=== PATIENT | male | born 1960 | race Caucasian/White ===

== ENCOUNTER → 2017-01-15 | Outpatient (CLI) | payer OTHER ==
[2017-01-15 11:16] LABS: BASO # 0.1 x10^3/uL (0.0-0.2); BASO % 1 % (0-3); EOS % 2 % (0-3); HEMATOCRIT 36.3 % (39.0-53.0); HEMOGLOBIN 11.7 g/dL (13.0-17.5); LYMPH # 1.7 x10^3/uL (1.0-4.8); LYMPH % 16 % (24-48); MEAN CORPUSCULAR HEMOGLOBIN 27 pg (25-35); MEAN CORPUSCULAR HGB CONC 32 g/dL (31-37); MEAN CORPUSCULAR VOLUME 85 fL (79-100); MONO % 7 % (0-9); NEUT % 73 % (31-73); PLATELET COUNT 385 x10^3/uL (140-400); RED BLOOD COUNT 4.29 x10^6/uL (4.30-5.70); WHITE BLOOD COUNT 10.3 x10^3/uL (4.0-11.0)
--- NOTE | 2017-01-15 12:59 | RAD ---
MR of the right hip region HISTORY: Open ulcer last week. Pressure ulcer. TECHNIQUE: Routine multiplanar sequences are obtained. FINDINGS: Broad soft tissue defect posterolateral to the right hip compatible with patient's ulcer. Ulcer channel is surrounded by abnormal soft tissue which extends to the femur, probably contacting the greater trochanter and proximal shaft. Small pockets of air are identified within the abnormal soft tissue, presumably due to room exposure. There is some heterogeneous fluid/edema deep to the ulcer and surrounding the bone in the right hip area but no evidence of a drainable abscess. Marrow edema signal identified in the proximal femur, centered at the greater trochanter. There is cortical destruction at the greater trochanter with loss of underlying fatty marrow signal, compatible with osteomyelitis. Diffuse intramuscular edema involving the proximal vastus muscles, gluteus muscles and obturator externus muscle. On the coronal T2-weighted images, series 8, there is some fluid signal extending proximally, lateral to the iliac bone, series 8, image 13 through 15, could represent dissection of fluid or abscess in the upper pelvis. Trace fluid in the right hip joint of uncertain sterility. The gluteus minimus and medius tendon insertions are difficult to define, could be due to the extensive inflammatory soft tissue changes or injury. IMPRESSION: 1. There is a deep soft tissue ulcer extending to the greater trochanter of the femur with evidence of osteomyelitis at the greater trochanter. 2. Extensive inflammatory or phlegmonous soft tissue around the ulcer and right hip without drainable abscess. However, there does appear to be some barely visualized fluid signal dissecting superiorly, into the right hemipelvis lateral to the iliac bone, and an abscess here is difficult to exclude. If further workup is considered, MRI of the musculoskeletal pelvis could be of benefit. Electronically signed by: Ventura Rodriguez MD (01/15/2017 12:56 PM) [id number]
== END | disposition home or self-care (01) ==
LOC: MRI 10:45
PROVIDERS: ATTEND Nurse Practitioner Family
DX: L89.213 Pressure ulcer of right hip, stage 3 (principal); M86.8X8 Other osteomyelitis, other site
CPT/HCPCS: 36415; 73721; 85025; 87071; 87075; 87205

== ENCOUNTER 2017-01-20 14:05 | Inpatient (IN) | payer OTHER ==
[~2017-01-20] VITALS: Ht 177.8 cm; Wt 108.9 kg
[2017-01-21 11:30] VITALS: BP 137/89
[2017-01-21] MEDS ORDERED: OXYB5TAB7 PO (12:34)
[2017-01-21] MEDS ORDERED: DIAZ5TAB PO (12:36)
[2017-01-21] MEDS ORDERED: INSU100V8 SQ (12:38)
[2017-01-21] MEDS ORDERED: LEVO500T59 PO (12:38)
[2017-01-21] MEDS ORDERED: INSU100C4 SQ (12:39)
[2017-01-21] MEDS ORDERED: DEXTROSE 50% 25 GM / 50ML DISP.SYRIN. IV PRN (13:30)
[2017-01-21] MEDS: OXYBUTYNIN CHLORIDE 5 MG TABLET PO SCH ×2 (13:49→21:03)
[2017-01-21] MEDS ORDERED: VANCOMYCIN 2 GM in IV DEXTROSE 5% 500 ML IV ONE (14:00)
[2017-01-21 15:00] VITALS: BP 144/85
[2017-01-21 15:38] LABS: CALCIUM 7.9 mg/dL (8.5-10.1); CREATININE 0.6 mg/dL (0.7-1.3); GFR 138.9; POTASSIUM 4.2 mmol/L (3.5-5.1)
[2017-01-21] MEDS: VANCOMYCIN PER PHARMACY MC PRN (15:45)
[2017-01-21] MEDS: INSULIN ASPART 300 UNITS/3 ML INSULN.PEN SQ SCH (18:17)
[2017-01-21 19:47] VITALS: BP 99/63
--- NOTE | 2017-01-21 20:54 | PDOC ---
PROGRESS NOTES Subjective Subjective Problems overnight: Objective Vital Signs Vital Signs Date Time Temp Pulse Resp B/P (MAP) Pulse Ox O2 Delivery O2 Flow Rate FiO2 01/21/17 19:44 Room Air 01/21/17 15:00 99.3 89 20 144/85 (104) 96 99.3 Labs Laboratory Tests Test 01/21/17 15:10 01/21/17 17:07 Sodium Level 134 mmol/L (136-145) Potassium Level 4.2 mmol/L (3.5-5.1) Chloride Level 101 mmol/L (98-107) Carbon Dioxide Level 26 mmol/L (21-32) Anion Gap 7 (6-14) Blood Urea Nitrogen 18 mg/dL (8-26) Creatinine 0.6 mg/dL (0.7-1.3) Estimated GFR (Cockcroft-Gault) 138.9 Glucose Level 281 mg/dL (70-99) Calcium Level 7.9 mg/dL (8.5-10.1) Glucose (Fingerstick) 237 mg/dL (70-99) Laboratory Tests Test 01/21/17 15:10 01/21/17 17:07 Sodium Level 134 mmol/L (136-145) Potassium Level 4.2 mmol/L (3.5-5.1) Chloride Level 101 mmol/L (98-107) Carbon Dioxide Level 26 mmol/L (21-32) Anion Gap 7 (6-14) Blood Urea Nitrogen 18 mg/dL (8-26) Creatinine 0.6 mg/dL (0.7-1.3) Estimated GFR (Cockcroft-Gault) 138.9 Glucose Level 281 mg/dL (70-99) Calcium Level 7.9 mg/dL (8.5-10.1) Glucose (Fingerstick) 237 mg/dL (70-99) Assessment Assessment POD# [], S/P [] Problems: Plan Plan of Care I reviewed the patient's mri and culture results. It appears he has a MRSA and E. faecalis infection of his right gluteal region. He is quadriplegic (per the nursing report I received), and this is likely a pressure sore. He is also diabetic. This is a very complex patient, and although the MRI reveals that the ulceration extends down to his greater trochanter, this greater trochanter osteomyelitis is not the full extent of his problem. He will likely need many debridements and complex soft tissue reconstruction / coverage. This will require plastic surgery, which we do not have at [facility]. I would recommend that he be transferred to a higher level tertiary care facility as soon as possible. Thank you for allowing me to participate in the care of your patient. Please call my office [phone] with any questions. ARLENE GIRON MD Jan 21, 2017 20:54
[2017-01-21] MEDS ORDERED: INSULIN ASPART 300 UNITS/3 ML INSULN.PEN SQ ONE (21:00)
[2017-01-21] MEDS: LACTOBACILLUS RHAMNOSUS GG 1 CAPSULE. PO SCH (21:03)
[2017-01-21 23:49] VITALS: BP 176/106
[2017-01-22] MEDS: VANCOMYCIN 1.75 GM in IV DEXTROSE 5 %-0.45 % NACL 500 ML IV SCH ×2 (00:59→15:45)
[2017-01-22 03:35] VITALS: BP 164/77
[2017-01-22 07:00] VITALS: BP 155/98
[2017-01-22] MEDS: LACTOBACILLUS RHAMNOSUS GG 1 CAPSULE. PO SCH ×2 (08:38→22:03)
[2017-01-22] MEDS: OXYBUTYNIN CHLORIDE 5 MG TABLET PO SCH ×3 (08:38→22:03)
[2017-01-22] MEDS: INSULIN DETEMIR 300 UNITS/3 ML INSULN.PEN. SQ SCH (08:44)
[2017-01-22] MEDS: INSULIN ASPART 300 UNITS/3 ML INSULN.PEN SQ SCH ×3 (08:48→17:42)
--- NOTE | 2017-01-22 09:09 | PDOC ---
GENERAL General: see dictated H&P. briefly has outpatient MRI here showing osteomyelitis of greater trochanter area and outside wound cultures showing MRSA. ID and ortho consulted. On vancomycin currently with only significant PMH of paraplegia and DM. Problems: VITAL SIGNS Vital Signs: Vital Signs Date Time Temp Pulse Resp B/P (MAP) Pulse Ox O2 Delivery O2 Flow Rate FiO2 01/22/17 07:00 98.4 84 18 155/98 (117) 98 Room Air 98.4 I & O I & O Intake and Output 01/22/17 07:00 Intake Total 4245 ml Output Total 1175 ml Balance 3070 ml Intake Oral 1330 ml IV Total 1000 ml Other 1915 ml Output Urine Total 1175 ml # Bowel Movements 2 ALLERGIES Allergies: Allergies Coded Allergies Type Severity Reaction Last Updated Verified I S O L A T I O N *CONTACT* Allergy Unknown 01/20/17 Yes Iodinated Contrast- Oral and IV Dye Allergy Unknown 01/22/17 Yes codeine Allergy Unknown 01/22/17 Yes MEDS Medications: Current Medications Medications (Trade) Dose Ordered Sig/Tory Start Time Stop Time Status Last Admin Dose Admin Dextrose (Dextrose 50%-Water Syringe) 12.5 gm PRN Q15MIN PRN 01/21/17 13:30 Diazepam (Valium) 5 mg PRN Q6HRS PRN 01/21/17 13:30 Insulin Aspart (NovoLOG) 3 units 1X ONCE 01/21/17 21:00 01/21/17 21:01 DC 01/21/17 21:09 3 UNITS Insulin Detemir (Levemir) 28 units DAILY08 01/22/17 08:00 01/22/17 08:44 28 UNITS Lactobacillus Rhamnosus (Culturelle) 1 cap BID 01/21/17 21:00 01/22/17 08:38 1 CAP Levofloxacin (Levaquin) 500 mg PRN DAILY PRN 01/21/17 13:30 Oxybutynin Chloride (Ditropan) 5 mg TID 01/21/17 14:00 01/22/17 08:38 5 MG Vancomycin HCl 1 each 1X ONCE 01/23/17 00:30 01/23/17 00:31 Vancomycin HCl (Vanco Per Pharmacy) 1 each PRN DAILY PRN 01/21/17 13:15 01/21/17 15:45 1 EACH Vancomycin HCl 1.75 gm/Dextrose/ Sodium Chloride 500 ml @ 250 mls/hr Q12H 01/22/17 01:00 01/22/17 00:59 250 MLS/HR Vancomycin HCl 2 gm/Dextrose 500 ml @ 250 mls/hr 1X ONCE 01/21/17 14:00 01/21/17 15:59 DC 01/21/17 13:32 250 MLS/HR LAB Lab: Laboratory Tests Test 01/21/17 14:30 01/21/17 15:10 01/21/17 17:07 01/21/17 20:43 Nasal Screen MRSA (PCR) Positive (Negative) Sodium Level 134 mmol/L (136-145) Potassium Level 4.2 mmol/L (3.5-5.1) Chloride Level 101 mmol/L (98-107) Carbon Dioxide Level 26 mmol/L (21-32) Anion Gap 7 (6-14) Blood Urea Nitrogen 18 mg/dL (8-26) Creatinine 0.6 mg/dL (0.7-1.3) Estimated GFR (Cockcroft-Gault) 138.9 Glucose Level 281 mg/dL (70-99) Calcium Level 7.9 mg/dL (8.5-10.1) Glucose (Fingerstick) 237 mg/dL (70-99) 239 mg/dL (70-99) Test 01/21/17 22:56 01/22/17 08:11 Glucose (Fingerstick) 191 mg/dL (70-99) 200 mg/dL (70-99) UMA SOL MD Jan 22, 2017 09:09
--- NOTE | 2017-01-22 09:50 | PDOC ---
Infectious Disease Note Vital Sign Vital Signs Vital Signs Date Time Temp Pulse Resp B/P (MAP) Pulse Ox O2 Delivery O2 Flow Rate FiO2 01/22/17 07:00 98.4 84 18 155/98 (117) 98 Room Air 98.4 Labs Lab Laboratory Tests Test 01/21/17 14:30 01/21/17 15:10 01/21/17 17:07 01/21/17 20:43 Nasal Screen MRSA (PCR) Positive (Negative) Sodium Level 134 mmol/L (136-145) Potassium Level 4.2 mmol/L (3.5-5.1) Chloride Level 101 mmol/L (98-107) Carbon Dioxide Level 26 mmol/L (21-32) Anion Gap 7 (6-14) Blood Urea Nitrogen 18 mg/dL (8-26) Creatinine 0.6 mg/dL (0.7-1.3) Estimated GFR (Cockcroft-Gault) 138.9 Glucose Level 281 mg/dL (70-99) Calcium Level 7.9 mg/dL (8.5-10.1) Glucose (Fingerstick) 237 mg/dL (70-99) 239 mg/dL (70-99) Test 01/21/17 22:56 01/22/17 08:11 Glucose (Fingerstick) 191 mg/dL (70-99) 200 mg/dL (70-99) Objective Assessment Rt trochanter osteomyelitis with possible pelvic osteo MRSA Paraplegia DM Plan Plan of Care Pt need extensive resection and flap surgery ( plastics ) will need to go through [facility] antibiotics can be changed to po doxy until pre and post surgery with iv antibiotics. process explained to pt in very detail IRISH LORENZO MD Jan 22, 2017 09:50
[2017-01-22 11:00] VITALS: BP 156/106
--- NOTE | 2017-01-22 12:16 | PDOC2 ---
CONSULT Date of Consult Date of Consult DATE: 01/22/17 TIME: 12:09 Reason for Consult Reason for Consult: Right hip wound Referring Physician Referring Physician: Dr. Morris Identification/Chief Complaint Chief Complaint Right hip wound demonstrating worsening, increased depth and most recent evidence of osteomyelitis Problems: (1) Osteomyelitis of right hip (2) Stage III pressure ulcer of right hip Source Source: Chart review, Patient History of Present Illness Reason for Visit: This is a 56-year-old patient recently admitted for worsening right hip ulceration. Patient reports a prior history of hip ulceration that resolved with negative pressure wound therapy. He did not believe that required bone debridement. Patient has been undergoing treatment of right hip ulceration for some time. Recent MRI demonstrated concern for bone involvement. It is my understanding that negative pressure wound therapy was being utilized at this time as well. Recent cultures have demonstrated MRSA. Patient's comorbidities are significant for paraplegia and diabetes. Patient reports a relatively good protein intake. He does not report recent fever, chills or lassitude. He is not aware of worsening odor. Past Medical History CENTRAL NERVOUS SYSTEM: Other (paraplegia) Endocrine: Diabetes Social History Social History Not contributory Current Problem List Problem List Right hip osteomyelitis Current Medications Current Medications Current Medications Vancomycin HCl (Vanco Per Pharmacy) 1 each PRN DAILY PRN MC SEE COMMENTS Last administered on 01/21/17 15:45; Start 01/21/17 at 13:15 Vancomycin HCl 2 gm/Dextrose 500 ml @ 250 mls/hr 1X ONCE IV Last administered on 01/21/17 13:32; Start 01/21/17 at 14:00; Stop 01/21/17 at 15 :59; Status DC Diazepam (Valium) 5 mg PRN Q6HRS PRN PO PAIN; Start 01/21/17 at 13:30 Levofloxacin (Levaquin) 500 mg PRN DAILY PRN PO With change of catheter; Start 01/21/17 at 13:30 Oxybutynin Chloride (Ditropan) 5 mg TID PO Last administered on 01/22/17 08: 38; Start 01/21/17 at 14:00 Insulin Detemir (Levemir) 28 units DAILY08 SQ Last administered on 01/22/17 08:44; Start 01/22/17 at 08:00 Insulin Aspart (NovoLOG) 0-9 UNITS TIDWMEALS SQ Last administered on 08:48; Start 01/21/17 at 17:00 Dextrose (Dextrose 50%-Water Syringe) 12.5 gm PRN Q15MIN PRN IV SEE COMMENTS; Start 01/21/17 at 13:30 Lactobacillus Rhamnosus (Culturelle) 1 cap BID PO Last administered on 08:38; Start 01/21/17 at 21:00 Vancomycin HCl 1.75 gm/Dextrose/ Sodium Chloride 500 ml @ 250 mls/hr Q12H IV Last administered on 01/22/17 00:59; Start 01/22/17 at 01:00 Vancomycin HCl 1 each 1X ONCE MC ; Start 01/23/17 at 00:30; Stop 01/23/17 at 00:31 Insulin Aspart (NovoLOG) 3 units 1X ONCE SQ Last administered on 01/21/17 21 :09; Start 01/21/17 at 21:00; Stop 01/21/17 at 21:01; Status DC Active Scripts Active Reported Novolog (Insulin Aspart) 100 Unit/1 Ml Cartridge 100 Unit SQ Lantus (Insulin Glargine,Hum.rec.anlog) 100 Unit/1 Ml Vial 28 Unit SQ DAILY08 Levaquin (Levofloxacin) 500 Mg Tablet 1 Tab PO PRN PRN Valium (Diazepam) 5 Mg Tablet 5 Mg PO PRN Q6HRS PRN Oxybutynin Chloride 5 Mg Tablet 5 Mg PO TID Allergies Allergies: Coded Allergies: I S O L A T I O N *CONTACT* (Verified Allergy, Unknown, 01/20/17) mrsa Iodinated Contrast- Oral and IV Dye (Verified Allergy, Unknown, 01/22/17) codeine (Verified Allergy, Unknown, 01/22/17) ROS Neurological: Yes Other (quadriplegia) Skin: Yes Other (significant pressure ulcer history in the past.) Physical Exam General: Alert, Oriented X3, Cooperative, No acute distress HEENT: Atraumatic, PERRLA, EOMI, Mucous membr. moist/pink Lungs: Clear to auscultation, Normal air movement Heart: Regular rate Abdomen: Soft Extremities: Other (atrophy and loss of muscle tone) Skin: Other (there is an 8 cm tract from a 1 cm x 1 cm right lateral hip ulceration. Unable to visualize the base. This is a stage IV pressure ulcer. Nearby is a stage III pressure ulcer of roughly 1.4 cm diameter. This has moderate slough in the base. Periwound appears intact at both sites with modest induration.) Neuro: Normal speech, Other (paraplegic) Psych/Mental Status: Mental status NL, Mood NL MUSCULOSKELETAL: Not examined Vitals VITALS Vital Signs Date Time Temp Pulse Resp B/P (MAP) Pulse Ox O2 Delivery O2 Flow Rate FiO2 01/22/17 08:15 Room Air 01/22/17 07:00 98.4 84 18 155/98 (117) 98 98.4 Labs Labs Laboratory Tests Test 01/21/17 14:30 01/21/17 15:10 01/21/17 17:07 01/21/17 20:43 Nasal Screen MRSA (PCR) Positive (Negative) Sodium Level 134 mmol/L (136-145) Potassium Level 4.2 mmol/L (3.5-5.1) Chloride Level 101 mmol/L (98-107) Carbon Dioxide Level 26 mmol/L (21-32) Anion Gap 7 (6-14) Blood Urea Nitrogen 18 mg/dL (8-26) Creatinine 0.6 mg/dL (0.7-1.3) Estimated GFR (Cockcroft-Gault) 138.9 Glucose Level 281 mg/dL (70-99) Calcium Level 7.9 mg/dL (8.5-10.1) Glucose (Fingerstick) 237 mg/dL (70-99) 239 mg/dL (70-99) Test 01/21/17 22:56 01/22/17 08:11 Glucose (Fingerstick) 191 mg/dL (70-99) 200 mg/dL (70-99) Laboratory Tests Test 01/21/17 14:30 01/21/17 15:10 01/21/17 17:07 01/21/17 20:43 Nasal Screen MRSA (PCR) Positive (Negative) Sodium Level 134 mmol/L (136-145) Potassium Level 4.2 mmol/L (3.5-5.1) Chloride Level 101 mmol/L (98-107) Carbon Dioxide Level 26 mmol/L (21-32) Anion Gap 7 (6-14) Blood Urea Nitrogen 18 mg/dL (8-26) Creatinine 0.6 mg/dL (0.7-1.3) Estimated GFR (Cockcroft-Gault) 138.9 Glucose Level 281 mg/dL (70-99) Calcium Level 7.9 mg/dL (8.5-10.1) Glucose (Fingerstick) 237 mg/dL (70-99) 239 mg/dL (70-99) Test 01/21/17 22:56 01/22/17 08:11 Glucose (Fingerstick) 191 mg/dL (70-99) 200 mg/dL (70-99) Images Images MRI reviewed. Assessment/Plan Assessment/Plan Stage IV pressure ulcer right hip with still myelitis. Stage III pressure ulcer right hip Patient is receiving IV antibiotic therapy. We reviewed offloading instructions with the patient. Aqua cell AG rope on an every other day basis is appropriate temporizing dressing until definitive surgical intervention can take place. Typically, protein supplementation recommended as well. If [facility] is being considered for definitive treatment, Dr. Reynold Elkins, wound care physician at that facility may be of some assistance. I will be happy to try to facilitate that if so desired. Thank you for allowing us to participate in your patient's care. ELIDA MEYER DO Jan 22, 2017 12:16
[2017-01-22 15:00] VITALS: BP_SYST 162; BP_SYST 165; BP_DIAS 103; BP_DIAS 104
[2017-01-22] MEDS: VANCOMYCIN PER PHARMACY MC PRN (16:43)
[2017-01-22 19:00] VITALS: BP 149/94
--- NOTE | 2017-01-22 20:48 | CONS ---
DATE OF CONSULTATION: 01/22/2017 REQUESTING PHYSICIAN: Dr. Morris. REASON FOR CONSULTATION: Right trochanteric osteomyelitis. 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 It this time opened up, he says, maybe about 3 weeks ago or so and then MRI was done, it showed osteo, hence he is here. The patient denies any fever, denies any nausea, vomiting, diarrhea. Denies any pain, denies any other complaints. The patient had similar wound on the left trochanter hip area, which had healed. PAST MEDICAL HISTORY: Positive for, as I mentioned, construction work injury with paraplegia. He does have use of upper extremities with some limitation on the fingers. The patient does have diabetes. He has a suprapubic catheter. SOCIAL HISTORY: Negative for smoking, alcohol, illicit drug use. He lives at home and I think he is taken care of by his mother. ALLERGIES: No known drug allergies. CURRENT MEDICATIONS: Reviewed. The patient is put on vancomycin. REVIEW OF SYSTEMS: As per HPI. All other systems reviewed are negative. PHYSICAL EXAMINATION: GENERAL: Alert, oriented gentleman, not in distress. VITAL SIGNS: Stable. T-max 99.5. HEENT: NAD. NECK: Supple, no JVP, no lymphadenopathy. LUNGS: Clear. HEART: S1, S2 regular. ABDOMEN: There is loss of muscle mass with distention, but there is no other abnormality. Suprapubic catheter in place. EXTREMITIES: Has loss of muscle mass and no use of legs. He does have contracture of the fingers, but he does have use of upper extremities. His right trochanteric area has a chronic looking wound that is all the way to the bone and does have some drainage coming out. NEUROLOGIC: The patient is neurologically alert, awake, appropriate, but paraplegic. SKIN: Rest of skin examination unremarkable. LABORATORY DATA: White count is not done. BUN and creatinine is normal. His MRSA screen is positive. His actually white count on 01/15/2017 was normal, hemoglobin 11.7, platelets are normal. His culture is showing MRSA and enterococcus. MRI of the area showed osteomyelitis of the greater trochanter of the right femur, also extensive inflammation or phlegmon around the ulcer and right hip without drainable abscess. There is a fluid signal dissecting superiorly into the right hemipelvis lateral to the iliac bone. IMPRESSION: 1. Right trochanteric osteomyelitis, chronic. 2. Possible involvement of the pelvis with infection. 3. Paraplegia. 4. Diabetes. RECOMMENDATIONS: The patient is going to need extensive resection of the infected bone and then rotational graft. For that the patient will have to go to [facility]. The whole process was explained to him, how it works and how to get this thing taken care of. We will also talk with Dr. Morris. I do not see the need for any IV antibiotics at this stage since IV antibiotics alone and/or any other wound modality, this is not going to heal. The patient needs this extensive resection and flap surgery, at the time he is going to need IV antibiotics, and he will have to go through the [facility]. Thank you very much, Dr. Morris, for giving me the opportunity to participate in this patient's care. IRISH LORENZO MD DR: SIRENA/angel JOB#: [id number] / [id number] CARLY
[2017-01-22] MEDS: ASCORBIC ACID 500 MG TABLET PO SCH (22:03)
[2017-01-22] MEDS ORDERED: INSULIN ASPART 300 UNITS/3 ML INSULN.PEN SQ ONE (22:15)
[2017-01-22] MEDS: diazePAM 5 MG TABLET PO PRN (22:17)
[2017-01-22 23:00] VITALS: BP 141/89
[2017-01-23] MEDS: VANCOMYCIN 1.75 GM in IV DEXTROSE 5 %-0.45 % NACL 500 ML IV SCH ×2 (01:40→13:00)
[2017-01-23 03:00] VITALS: BP 139/93
[2017-01-23 07:00] VITALS: BP 145/99
--- NOTE | 2017-01-23 08:48 | PDOC ---
GENERAL General: vss with afebrile. awake and alert. exam stable. plan for transfer to [facility] later today under wound team. will need flap surgery and ongoing antibiotics per ID and wound care. Post-op patient pushing to go home with clinitron bed as opposed to prolonged stay in LTAC or snu after. Problems: VITAL SIGNS Vital Signs: Vital Signs Date Time Temp Pulse Resp B/P (MAP) Pulse Ox O2 Delivery O2 Flow Rate FiO2 01/23/17 07:00 97.9 105 18 145/99 (114) 100 Room Air 97.9 I & O I & O Intake and Output 01/23/17 07:00 Intake Total 760 ml Output Total 750 ml Balance 10 ml Intake Oral 260 ml IV Total 500 ml Output Urine Total 750 ml ALLERGIES Allergies: Allergies Coded Allergies Type Severity Reaction Last Updated Verified I S O L A T I O N *CONTACT* Allergy Unknown 01/20/17 Yes Iodinated Contrast- Oral and IV Dye Allergy Unknown 01/22/17 Yes codeine Allergy Unknown 01/22/17 Yes MEDS Medications: Current Medications Medications (Trade) Dose Ordered Sig/Tory Start Time Stop Time Status Last Admin Dose Admin Ascorbic Acid (Vitamin C) 500 mg BID 01/22/17 21:00 01/22/17 22:03 500 MG Dextrose (Dextrose 50%-Water Syringe) 12.5 gm PRN Q15MIN PRN 01/21/17 13:30 Diazepam (Valium) 5 mg PRN Q6HRS PRN 01/21/17 13:30 01/22/17 22:17 5 MG Insulin Aspart (NovoLOG) 4 units 1X ONCE 01/22/17 22:15 01/22/17 22:20 DC 01/22/17 22:12 4 UNITS Insulin Detemir (Levemir) 28 units DAILY08 01/22/17 08:00 01/22/17 08:44 28 UNITS Lactobacillus Rhamnosus (Culturelle) 1 cap BID 01/21/17 21:00 01/22/17 22:03 1 CAP Levofloxacin (Levaquin) 500 mg PRN DAILY PRN 01/21/17 13:30 Multivitamins (Thera M Plus) 1 tab DAILY 01/23/17 09:00 Oxybutynin Chloride (Ditropan) 5 mg TID 01/21/17 14:00 01/22/17 22:03 5 MG Vancomycin HCl 1 each 1X ONCE 01/23/17 13:00 01/23/17 13:01 Vancomycin HCl (Vanco Per Pharmacy) 1 each PRN DAILY PRN 01/21/17 13:15 01/22/17 16:43 1 EACH Vancomycin HCl 1.75 gm/Dextrose/ Sodium Chloride 500 ml @ 250 mls/hr Q12H 01/22/17 01:00 01/23/17 01:40 250 MLS/HR Vancomycin HCl 2 gm/Dextrose 500 ml @ 250 mls/hr 1X ONCE 01/21/17 14:00 01/21/17 15:59 DC 01/21/17 13:32 250 MLS/HR LAB Lab: Laboratory Tests Test 01/22/17 11:44 01/22/17 17:10 01/22/17 20:50 01/23/17 00:40 Glucose (Fingerstick) 189 mg/dL (70-99) 208 mg/dL (70-99) 265 mg/dL (70-99) Vancomycin Level Trough 23.6 mcg/mL (10.0-20.0) Vancomycin Last Dose Date [id number] Vancomycin Last Dose Time 1300 UMA SOL MD Jan 23, 2017 08:48
--- NOTE | 2017-01-23 08:51 | PDOC ---
Infectious Disease Note Subjective Subjective feeling good ROS ROS GEN: Denies fevers, chills, sweats HEENT: Denies blurred vision, sore throat CV: Denies chest pain RESP: Denies shortness of air, cough GI: Denies n/v/d NEURO: Denies confusion, dizziness Vital Sign Vital Signs Vital Signs Date Time Temp Pulse Resp B/P (MAP) Pulse Ox O2 Delivery O2 Flow Rate FiO2 01/23/17 03:00 97.9 96 18 139/93 (108) 99 Room Air 97.9 Physical Exam PHYSICAL EXAM GENERAL: NAD, Alert HEENT: PERRL, OC/OP NECK: Supple, no JVD, no LN LUNGS: Clear HEART: S1S2, no gallop, no murmur ABD: Soft, NT, no organomegaly, no rebound EXT: No edema, no cyanosis BAG BAILER: Alert, oriented x 3, paraplegic SKIN: No rash,, rt hip wound to bone IV: ok Labs Lab Laboratory Tests Test 01/22/17 11:44 01/22/17 17:10 01/22/17 20:50 01/23/17 00:40 Glucose (Fingerstick) 189 mg/dL (70-99) 208 mg/dL (70-99) 265 mg/dL (70-99) Vancomycin Level Trough 23.6 mcg/mL (10.0-20.0) Vancomycin Last Dose Date [id number] Vancomycin Last Dose Time 1300 Objective Assessment Rt trochanter osteomyelitis with possible pelvic osteo MRSA Paraplegia DM Plan Plan of Care Pt need extensive resection and flap surgery ( plastics ) will need to go through [facility] antibiotics can be changed to po doxy until pre and post surgery with iv antibiotics. process explained to pt in very detail IRISH LORENZO MD Jan 23, 2017 08:51
[2017-01-23] MEDS ORDERED: MULTIVITAMIN with MINERAL TABLET. PO SCH (09:00)
[2017-01-23] MEDS: OXYBUTYNIN CHLORIDE 5 MG TABLET PO SCH ×2 (09:21→15:23)
[2017-01-23] MEDS: PIPERACILLIN/TAZO IV Push 3.375 GM VIAL. IVP SCH ×2 (09:21→15:24)
[2017-01-23] MEDS: LACTOBACILLUS RHAMNOSUS GG 1 CAPSULE. PO SCH (09:21)
[2017-01-23] MEDS: ASCORBIC ACID 500 MG TABLET PO SCH (09:21)
[2017-01-23] MEDS: INSULIN DETEMIR 300 UNITS/3 ML INSULN.PEN. SQ SCH (09:26)
[2017-01-23] MEDS: INSULIN ASPART 300 UNITS/3 ML INSULN.PEN SQ SCH ×2 (09:27→12:35)
[2017-01-23 11:00] VITALS: BP 216/121
[2017-01-23] MEDS ORDERED: PIPERACILLIN/TAZOBACTAM 3.375 GM in IV DEXTROSE 5% 50 ML IV SCH (12:00)
[2017-01-23] MEDS: diazePAM 5 MG TABLET PO PRN (12:26)
[2017-01-23] MEDS: VANCOMYCIN PER PHARMACY MC PRN (13:40)
--- NOTE | 2017-01-23 17:06 | HP ---
ADMIT DATE: CHIEF COMPLAINT AND HISTORY OF PRESENT ILLNESS: This 56-year-old white male was admitted for right greater trochanteric osteomyelitis. Briefly, we rested the patient at home as he is a paraplegic after wound VAC and after a fall from scaffolding back in 1983. He has had a wound in his right hip area as well as left hip area. The left is healed. The right is healed, but is open back up at this point in time for the past 3 weeks or so. Wound cultures prior to admission showed MRSA. The MRI was done showing osteomyelitis; thus, he was admitted to the hospital. PAST MEDICAL HISTORY: Remarkable for diabetes, paraplegia, suprapubic catheter. MEDICATIONS: Brought with the patient, listed on the computer and been addressed. ALLERGIES: He has no known drug allergies. SOCIAL HISTORY: He is a nonsmoker, nondrinker, does not use drugs. Lives at home with his mother. FAMILY HISTORY: Noncontributory. REVIEW OF SYSTEMS: Essentially negative. He denies any fevers, chills, sweats, nausea, vomiting, diarrhea, etc. PHYSICAL EXAMINATION: GENERAL: He is a well-developed, well-nourished, pleasant white male, in no acute distress. VITAL SIGNS: Stable. He is afebrile. HEAD, EYES, EARS, NOSE AND THROAT: Unremarkable. NECK: Supple without adenopathy and thyromegaly. CHEST: Clear to auscultation and percussion. HEART: Regular rate and rhythm without S3, S4 or murmur. ABDOMEN: Soft, nontender without hepatosplenomegaly or masses. Suprapubic catheter is in place. Extremity revealed loss of muscle mass. EXTREMITIES: No use of his legs. He does have contractures of the fingers and wears braces for the same, right greater trochanteric area has a chronic open wound that is all the way to the bone and has some drainage coming out. NEUROLOGIC: Intact other than the paraplegia. IMPRESSION: Right greater trochanteric osteomyelitis. The patient has been admitted. Vancomycin has been started with the MRSA on the culture. ID and Ortho will be consulted and the patient will be monitored, managed and treated appropriately. UMA SOL MD DR: YOLANDE/angel JOB#: [id number] / [id number]
[2017-01-23] MEDS ORDERED: VANCOMYCIN 1.25 GM in IV DEXTROSE 5% 250 ML IV SCH (20:00)
--- NOTE | 2017-01-23 22:32 | DS ---
DATE OF DISCHARGE: 01/23/2017 PRIMARY DIAGNOSIS: Osteomyelitis of the right greater trochanter. 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 CHIEF COMPLAINT AND HISTORY OF PRESENT ILLNESS: This 56-year-old pleasant white male admitted to the hospital with MRI evidence of right greater trochanteric osteomyelitis as well as culture positive MRSA. SUMMARY OF STAY: The patient was admitted, started on vancomycin. ID and Ortho were consulted. Conclusion after investigation was that the patient would need to have a plastic surgeon go down and scrape the bone and do a flap for any chance of healing. This was discussed by the wound care center team with who agreed to take him in transfer on the and this was accomplished. DISPOSITION: The patient was transferred to [facility] for ongoing antibiotics and surgical flap and bone debridement. DISCHARGE INSTRUCTIONS: He is on ADA diet. Activity as tolerated. Med rec has been sent with the patient. We will follow up with him after he is out of the hospital. UMA SOL MD DR: YOLANDE/angel JOB#: [id number] / [id number]
== END 2017-01-23 16:15 | disposition short-term general hospital (02) | DRG 637 ==
LOC: 4 NORTH 01-21 10:21
PROVIDERS: ADMIT Family Medicine; ATTEND Family Medicine
DX: E11.69 Type 2 diabetes mellitus with other specified complication (principal); L89.214 Pressure ulcer of right hip, stage 4; M86.651 Other chronic osteomyelitis, right thigh; G04.91 Myelitis, unspecified; G82.20 Paraplegia, unspecified; Z88.5 Allergy status to narcotic agent; Z91.041 Radiographic dye allergy status; Z79.4 Long term (current) use of insulin
CPT/HCPCS: 36415; 80048; 80202; 82962; 87071; 87075; 87205; 87641; J1815; J2543; J3370